=== PATIENT | female | born 1995 | race Caucasian/White ===

== ENCOUNTER → 2024-08-14 | Outpatient (CLI) | payer BC ==
[2024-08-14 15:56] LABS: BASO # 0.02 K/mm3 (0.02-0.10); EOS # 0.11 K/mm3 (0.04-0.40); EOS % 1.5 % (1.0-5.0); HEMATOCRIT 41.7 % (37.0-47.0); HEMOGLOBIN 13.7 g/dL (12.5-16.0); LYMPH# 2.16 K/mm3 (1.50-4.00); MEAN CELL VOLUME 84 fl (78-100); MEAN CORPUSCULAR HEMOGLOBIN 28 pg (27-31); MEAN CORPUSCULAR HGB CONC 33 g/dL (33-37); MEAN PLATELET VOLUME 8.9 fl (7.4-10.4); MONO # 0.46 K/mm3 (0.20-0.80); NEU # 4.68 K/mm3 (1.40-6.50); PLATELET COUNT 331 K/mm3 (130-400); RED BLOOD COUNT 4.94 M/mm3 (4.10-5.30); RED CELL DISTRIBUTION WIDTH 13.4 % (11.5-14.5); WHITE BLOOD COUNT 7.4 K/mm3 (4.8-10.8)
[2024-08-14 16:10] LABS: ALBUMIN 4.4 g/dL (3.5-5.0)
[2024-08-14 16:11] LABS: CALCIUM 9.5 mg/dL (8.3-10.5)
[2024-08-14 16:12] LABS: TOTAL PROTEIN 7.4 g/dL (6.4-8.3)
[2024-08-14 16:14] LABS: TOTAL BILIRUBIN 0.3 mg/dL (0.2-1.2)
[2024-08-14 23:59] LABS: T3 FREE 3.2 pg/mL (1.7-3.7)
== END ==
LOC: LAB 15:08
PROVIDERS: Family Medicine
DX: E78.5 Hyperlipidemia, unspecified (principal); E28.2 Polycystic ovarian syndrome; E03.9 Hypothyroidism, unspecified; I10 Essential (primary) hypertension; Z84.81 Family history of carrier of genetic disease